=== PATIENT | male | born 1955 | race Caucasian/White ===

== ENCOUNTER 2021-11-26 18:52 | Inpatient (IN) | payer BC, MEDICARE ==
[~2021-11-26] VITALS: Ht 185.4 cm; Wt 109.4 kg
[2021-11-26 20:35] VITALS: BP 163/70
[2021-11-26] MEDS: PANTOPRAZOLE 20 MG TAB PO SCH (21:00)
[2021-11-26] MEDS ORDERED: ACETAMINOPHEN TAB 650MG DOSE (2X325MG) PO PRN (21:40)
[2021-11-26] MEDS ORDERED: MOM 30ML SUSPENSION UDC PO PRN (21:40)
[2021-11-26] MEDS ORDERED: ATEN50TA2 PO (21:59)
[2021-11-26] MEDS ORDERED: TRUL0.5I INJ (21:59)
[2021-11-26] MEDS ORDERED: SPIR-10 PO (21:59)
[2021-11-26] MEDS ORDERED: FURO20TA2 PO (21:59)
[2021-11-26] MEDS ORDERED: METF10004 PO (21:59)
[2021-11-26] MEDS ORDERED: PANT20TA6 PO (21:59)
[2021-11-26] MEDS ORDERED: HOME MED LIST COMPLETE! XX SCH ×2 (22:00→22:35)
[2021-11-26] MEDS ORDERED: GLUCAGON INJ 1MG VIAL SC PRN (22:25)
[2021-11-26] MEDS ORDERED: DEXTROSE 50% 50 ML SYRINGE IV PRN (22:25)
[2021-11-26] MEDS ORDERED: GLUCOSE 4GM CHEW TABLET PO PRN (22:25)
[2021-11-26] MEDS ORDERED: ASPI81TA26 PO (22:33)
[2021-11-26 23:28] LABS: MEAN CORPUSCULAR HEMOGLOBIN 24.9 pg (27.0-33.0); MEAN CORPUSCULAR HGB CONC 32.4 g/dl (32.0-36.5); MEAN CORPUSCULAR VOLUME 77.1 fl (80.0-96.0); PLATELET COUNT, AUTOMATED 205 10^3/uL (150-450); RED BLOOD COUNT 4.41 10^6/uL (4.30-6.10); WHITE BLOOD COUNT 15.6 10^3/uL (4.0-10.0)
[2021-11-26 23:35] LABS: ALBUMIN 3.4 GM/DL (3.2-5.2); BILIRUBIN,TOTAL 1.4 MG/DL (0.2-1.0); CALCIUM LEVEL 8.8 MG/DL (8.8-10.2); CREATININE FOR GFR 1.6 MG/DL (0.70-1.30); GLOMERULAR FILTRATION RATE 46.1 (>49); POTASSIUM SERUM 3.8 MEQ/L (3.5-5.1); TOTAL PROTEIN 6.3 GM/DL (6.4-8.2)
[2021-11-26 23:44] LABS: INR 1.06; PROTHROMBIN TIME 14.2 SECONDS (12.7-14.5)
[2021-11-26] MEDS ORDERED: diphenhydrAMINE 25MG CAP PO PRN (23:50)
[2021-11-27] MEDS: HumaLOG INSULIN (NovoLOG) PER UNIT SC SCH ×5 (00:24→21:00)
[2021-11-27] MEDS: PIPERACILLIN/TAZOBACTAM SOD 4.5 GM in D5W MINI-BAG PLUS 50 ML IV SCH ×4 (00:24→18:22)
[2021-11-27 00:31] VITALS: BP 147/67
[2021-11-27] MEDS: VANCOMYCIN HCL 1,000 MG, VIAL MATE ADAPTER 1 EACH in NS 250 ML IV SCH ×2 (01:19→12:56)
[2021-11-27] MEDS ORDERED: VANCOMYCIN HCL 1,000 MG, VIAL MATE ADAPTER 1 EACH in NS 250 ML IV ONE (02:00)
[2021-11-27 03:31] LABS: HEMATOCRIT 32.5 % (42.0-52.0); HEMOGLOBIN 10.5 g/dl (13.5-17.5); MEAN CORPUSCULAR HEMOGLOBIN 24.7 pg (27.0-33.0); MEAN CORPUSCULAR HGB CONC 32.3 g/dl (32.0-36.5); MEAN CORPUSCULAR VOLUME 76.5 fl (80.0-96.0); PLATELET COUNT, AUTOMATED 189 10^3/uL (150-450); RED BLOOD COUNT 4.25 10^6/uL (4.30-6.10); WHITE BLOOD COUNT 13.4 10^3/uL (4.0-10.0)
[2021-11-27 04:00] LABS: ALBUMIN 3.2 GM/DL (3.2-5.2); BILIRUBIN,TOTAL 1.1 MG/DL (0.2-1.0); CALCIUM LEVEL 8.5 MG/DL (8.8-10.2); CREATININE FOR GFR 1.54 MG/DL (0.70-1.30); GLOMERULAR FILTRATION RATE 48.2 (>49); POTASSIUM SERUM 3.6 MEQ/L (3.5-5.1); TOTAL PROTEIN 6.3 GM/DL (6.4-8.2)
[2021-11-27 04:43] VITALS: BP 148/67
[2021-11-27] MEDS ORDERED: HEPARIN SOD (PORCINE) 5000UNITS/ML 1ML VIAL/SYRINGE SC SCH (06:00)
[2021-11-27 08:00] VITALS: BP 119/57
[2021-11-27] MEDS: ATORVASTATIN 20 MG TAB PO SCH (08:38)
[2021-11-27] MEDS: ASPIRIN 81MG ENTERIC TABLET PO SCH (08:38)
[2021-11-27] MEDS: PANTOPRAZOLE 20 MG TAB PO SCH ×2 (08:38→21:00)
[2021-11-27] MEDS: APIXABAN 5 MG TAB (ELIQUIS) PO SCH ×2 (08:48→21:00)
[2021-11-27] MEDS: atenoloL 50 MG TAB PO SCH (08:48)
[2021-11-27] MEDS ORDERED: FUROSEMIDE 20 MG TAB PO SCH (09:00)
[2021-11-27] MEDS ORDERED: SPIRONOLACTONE 25 MG TAB PO SCH (09:00)
[2021-11-27 12:00] VITALS: BP 149/65
[2021-11-27 16:00] VITALS: BP 140/55
[2021-11-27 20:00] VITALS: BP 127/59
[2021-11-28] VITALS (7 sets, daily range): BP systolic 134–152; BP diastolic 62–68
[2021-11-28] MEDS: PIPERACILLIN/TAZOBACTAM SOD 4.5 GM in D5W MINI-BAG PLUS 50 ML IV SCH ×5 (00:51→23:46)
[2021-11-28] MEDS: VANCOMYCIN HCL 1,000 MG, VIAL MATE ADAPTER 1 EACH in NS 250 ML IV SCH ×2 (02:03→14:06)
[2021-11-28 07:38] LABS: BASO % 0.8 % (0.0-1.0); EOS # 0.1 10^3/uL (0.0-0.5); EOS % 1.1 % (0.0-3.0); HEMATOCRIT 32.5 % (42.0-52.0); HEMOGLOBIN 10.3 g/dl (13.5-17.5); LYMPH % 17.8 % (24.0-44.0); MEAN CORPUSCULAR HEMOGLOBIN 24.7 pg (27.0-33.0); MEAN CORPUSCULAR HGB CONC 31.7 g/dl (32.0-36.5); MEAN CORPUSCULAR VOLUME 77.9 fl (80.0-96.0); MONO # 0.5 10^3/uL (0.0-0.8); MONO % 9.8 % (2.0-8.0); NEUTROPHILS # 3.7 10^3/uL (1.5-8.5); NEUTROPHILS % 70.1 % (36.0-66.0); PLATELET COUNT, AUTOMATED 169 10^3/uL (150-450); RED BLOOD COUNT 4.17 10^6/uL (4.30-6.10); WHITE BLOOD COUNT 5.3 10^3/uL (4.0-10.0)
[2021-11-28 08:00] LABS: ALBUMIN 2.6 GM/DL (3.2-5.2); BILIRUBIN,TOTAL 0.7 MG/DL (0.2-1.0); CALCIUM LEVEL 8.3 MG/DL (8.8-10.2); CREATININE FOR GFR 1.45 MG/DL (0.70-1.30); GLOMERULAR FILTRATION RATE 51.7 (>49); POTASSIUM SERUM 3.7 MEQ/L (3.5-5.1); TOTAL PROTEIN 5.3 GM/DL (6.4-8.2)
[2021-11-28] MEDS: ATORVASTATIN 20 MG TAB PO SCH (08:45)
[2021-11-28] MEDS: APIXABAN 5 MG TAB (ELIQUIS) PO SCH ×2 (08:45→20:45)
[2021-11-28] MEDS: ASPIRIN 81MG ENTERIC TABLET PO SCH (08:45)
[2021-11-28] MEDS: HumaLOG INSULIN (NovoLOG) PER UNIT SC SCH ×4 (08:45→20:47)
[2021-11-28] MEDS: PANTOPRAZOLE 20 MG TAB PO SCH ×2 (08:45→20:45)
[2021-11-28] MEDS: atenoloL 50 MG TAB PO SCH (08:46)
[2021-11-28] MEDS: TAMSULOSIN 0.4 MG CAP PO SCH (11:11)
[2021-11-29] VITALS: BP 138/62
[2021-11-29] MEDS: VANCOMYCIN HCL 1,000 MG, VIAL MATE ADAPTER 1 EACH in NS 250 ML IV SCH (01:58)
[2021-11-29 04:00] VITALS: BP 122/62
[2021-11-29 05:37] LABS: BASO # 0.1 10^3/uL (0.0-0.2); BASO % 1.3 % (0.0-1.0); EOS # 0.2 10^3/uL (0.0-0.5); EOS % 4.3 % (0.0-3.0); HEMATOCRIT 31.8 % (42.0-52.0); HEMOGLOBIN 10.3 g/dl (13.5-17.5); LYMPH # 1.2 10^3/uL (1.5-5.0); MEAN CORPUSCULAR HEMOGLOBIN 25.2 pg (27.0-33.0); MEAN CORPUSCULAR HGB CONC 32.4 g/dl (32.0-36.5); MEAN CORPUSCULAR VOLUME 77.8 fl (80.0-96.0); MONO # 0.5 10^3/uL (0.0-0.8); MONO % 12.1 % (2.0-8.0); NEUTROPHILS # 2.1 10^3/uL (1.5-8.5); PLATELET COUNT, AUTOMATED 163 10^3/uL (150-450); RED BLOOD COUNT 4.09 10^6/uL (4.30-6.10)
[2021-11-29] MEDS: PIPERACILLIN/TAZOBACTAM SOD 4.5 GM in D5W MINI-BAG PLUS 50 ML IV SCH (05:49)
[2021-11-29 05:58] LABS: C REACTIVE PROTEIN QUANTITATIV 8.1 MG/DL (0.00-0.30); CALCIUM LEVEL 8.6 MG/DL (8.8-10.2); CREATININE FOR GFR 1.37 MG/DL (0.70-1.30); GLOMERULAR FILTRATION RATE 55.2 (>49); POTASSIUM SERUM 4.1 MEQ/L (3.5-5.1)
[2021-11-29 08:24] VITALS: BP 146/67
[2021-11-29] MEDS: ATORVASTATIN 20 MG TAB PO SCH (08:59)
[2021-11-29] MEDS: TAMSULOSIN 0.4 MG CAP PO SCH (09:00)
[2021-11-29] MEDS: PANTOPRAZOLE 20 MG TAB PO SCH (09:00)
[2021-11-29] MEDS: atenoloL 50 MG TAB PO SCH (09:00)
[2021-11-29] MEDS: ASPIRIN 81MG ENTERIC TABLET PO SCH (09:00)
[2021-11-29] MEDS: APIXABAN 5 MG TAB (ELIQUIS) PO SCH (09:00)
[2021-11-29] MEDS: HumaLOG INSULIN (NovoLOG) PER UNIT SC SCH (09:01)
[2021-11-29] MEDS ORDERED: CEFD300C41 PO (10:17)
[2021-11-29] MEDS ORDERED: FLOM0.4C39 PO (10:17)
[2021-11-29] MEDS ORDERED: ELIQ5TAB PO (10:17)
[2021-11-29] MEDS ORDERED: ATOR40TA75 PO (10:17)
== END 2021-11-29 12:55 | disposition home or self-care (01) | DRG 872 ==
LOC: M PCU 20:37
PROVIDERS: ADMIT Internal Medicine Nephrology; ATTEND Internal Medicine Nephrology
DX: A41.9 Sepsis, unspecified organism (principal); L03.115 Cellulitis of right lower limb; N17.9 Acute kidney failure, unspecified; I82.432 Acute embolism and thrombosis of left popliteal vein; E11.42 Type 2 diabetes mellitus with diabetic polyneuropathy; I25.2 Old myocardial infarction; I11.0 Hypertensive heart disease with heart failure; Z95.5 Presence of coronary angioplasty implant and graft; R33.9 Retention of urine, unspecified; K21.9 Gastro-esophageal reflux disease without esophagitis; Z79.82 Long term (current) use of aspirin; Z79.84 Long term (current) use of oral hypoglycemic drugs; Z79.899 Other long term (current) drug therapy; Z88.0 Allergy status to penicillin; Z91.013 Allergy to seafood; I25.10 Atherosclerotic heart disease of native coronary artery without angina pectoris; I50.9 Heart failure, unspecified